=== PATIENT | female | born 1960 | race Caucasian/White ===

== ENCOUNTER → 2016-08-04 | Outpatient (CLI) | payer BC ==
--- NOTE | 2016-08-04 19:43 | HKNOTE ---
DATE OF SERVICE: 08/04/2016 The patient has degenerative osteoarthritis of her left knee. The cortisone injection given into he r knee at the last visit helped for almost 6 months. She requests a repeat cortisone injection. PHYSICAL EXAMINATION: The patient clinically has arthritis in the left knee (4+ crepitus). MANAGEMENT: Under sterile conditions, given injection of 2 mL of Kenalog and 6 mL of 2% lidocaine i nto the left knee. She will be seen again as necessary. Dictated By: NOLAN BERMUDEZ/MERCEDEZ Conf#: [id number] DID#: [id number]
== END | disposition home or self-care (01) ==
LOC: HKI 14:54
DX: M17.12 Unilateral primary osteoarthritis, left knee (principal)
CPT/HCPCS: 20610; G0463; J3301

== ENCOUNTER → 2016-11-24 | Outpatient (CLI) | payer BC ==
--- NOTE | 2016-11-25 05:31 | HKNOTE ---
DATE OF SERVICE: MAIN COMPLAINT: Pain in the left knee. The patient has had 2 cortisone injections in the left knee in the past performed by me for knee arthritis. The first one lasted for almost a year. The secon d one lasted for only a few months. She comes in "wondering if she can have another cortisone injec tion in the knee." On physical examination, the patient had all the clinical signs of a left knee arthritis and will re quire a second injection helped her for only 2 months. She does request that we give her another cortisone injection. She states "I don't want to have a s urgery at this time yet please." MANAGEMENT: Under sterile conditions gave injection of 2 mL of Kenalog and 6 mL of 2% lidocaine int o the left knee and she will be seen again as necessary for further evaluation and treatment. Note that we spent some time discussing knee replacement surgery. I showed her some videos on successful patients and case of knee arthritis . Dictated By: NOLAN BERMUDEZ/MERCEDEZ Conf#: [id number] DID#: [id number]
== END | disposition home or self-care (01) ==
LOC: HKI 15:02
DX: M25.562 Pain in left knee (principal)
CPT/HCPCS: 20610; G0463

== ENCOUNTER → 2017-04-29 | Outpatient (CLI) | payer BC ==
--- NOTE | 2017-04-30 12:10 | RADRPT ---
PROCEDURE: XR Knees. CLINICAL INDICATION: Bilateral knee pain. TECHNIQUE: Total of six views. Frontal, oblique, and lateral views of both knees. COMPARISON: No prior study is available for comparison. FINDINGS: There are mild degenerative changes of the right knee with osteophytes noted. There are severe degenerative changes of the left knee with medial joint compartment narrowing, suba rticular sclerosis, and deformity. There is no fracture or dislocation. There is no lytic or blastic lesion. There is no radiopaque foreign body. IMPRESSION: 1. Mild degenerative changes of the right knee. 2. Severe degenerative changes of the left knee. RPTAT: QQ .Davie Quiles MD, MD Date Time Electronically viewed and signed by .Davie Quiles MD, MD on 04/30/2017 12:10 .R/
--- NOTE | 2017-05-02 14:19 | HKNOTE ---
DATE OF SERVICE: 04/29/2017 CHIEF COMPLAINT: Left knee pain. HISTORY OF THE PRESENT ILLNESS: Nasra is a 56-year-old female who is here for evaluation of left knee pain that has been ongoing for a number of years. Over the past couple of months, the pain has inc reased to the point where it is interfering with routine activities. This is interfering with her w ork as well. 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 She is here to discuss possible knee replacement. She has se en Dr. Smith in the past and knee injections were tried with not much relief. PAST MEDICAL HISTORY: Significant for knee arthroscopy for torn meniscus. MEDICATIONS: Motrin. ALLERGIES: None. PHYSICAL EXAMINATION: This shows a pleasant female. She is awake, alert and oriented. Walks witho ut a limp. The left knee shows evidence of previous arthroscopy. There is tenderness over the medi al joint line, mild swelling is noted. Range of motion of the knee is 5 to 105 degrees with crepitu s. There is no instability and no neurovascular deficit. X-rays of the left knee were reviewed and show advanced osteoarthritis with complete loss of medial joint space. Osteophytes area noted in the medial and patellofemoral compartments. ASSESSMENT AND PLAN: This is a 56-year-old female with advanced osteoarthritis of her left knee. S he has failed conservative treatment. Risks and benefits of surgical treatment were discussed. Quinn gical techniques and implant materials were discussed as well. She would like to proceed with left total knee replacement in the near future and will be scheduled for the same. Dictated By: KARISSA CUMMINGS/MERCEDEZ Conf#: [id number] DID#: [id number]
== END | disposition home or self-care (01) ==
LOC: HKI 14:30
PROVIDERS: ATTEND Orthopaedic Surgery
DX: M17.12 Unilateral primary osteoarthritis, left knee (principal)
CPT/HCPCS: 73562; G0463

== ENCOUNTER → 2017-06-10 | Outpatient (CLI) | payer BC | END | disposition home or self-care (01) | LOC: HKI 13:31 | PROVIDERS: ATTEND Orthopaedic Surgery | DX: Z01.818 Encounter for other preprocedural examination (principal); M17.12 Unilateral primary osteoarthritis, left knee ==

== ENCOUNTER 2017-06-15 05:43 | Inpatient (IN) | payer BC, OTHER ==
--- NOTE | 2017-06-10 15:22 | PREOPHP ---
DATE OF ADMISSION: 06/15/2017 PREOPERATIVE INTERNAL MEDICINE CONSULTATION REASON FOR CONSULTATION: Consultation requested by Dr. Karissa Laguna for medical evaluation and paolo chacho of a 56-year-old woman about to undergo surgery. Thank you, Dr. Laguna, for allowing us to participate in care of this patient. HISTORY OF PRESENT ILLNESS: Nasra Mauricio, a 56-year-old woman, issues with her left knee, is current ly being admitted for correction of the above problem. In terms of her past medical and surgical history, her only prior surgery was an arthroscopic surger y, left knee for torn meniscus. She has not had any medical hospitalizations other than for deliver y of babies which was vaginal. She has had no other medical hospitalizations nor any other surgical procedures. She has not broken any bones. MEDICATIONS: The only medications she takes is ibuprofen, which she has discontinued. ALLERGIES: SHE IS NOT ALLERGIC TO ANY MEDICATIONS. SOCIAL HISTORY: The patient is , has 2 sons, one has juvenile rheumatoid arthritis. Other than that, they are healthy. She does not smoke. Alcohol socially. Does drink coffee, is employed and usually has no difficulty sleeping at night. FAMILY HISTORY: Father is at age 78, head trauma and dementia. Mother is 80 in good healt h. One brother is 59 and in good health. There is family history of hypertension. She knows of no diabetes, heart, cancer or stroke. REVIEW OF SYSTEMS: HEENT: Periodic migraine headaches. CARDIORESPIRATORY: Denies any chest pain or shortness of breath. GASTROINTESTINAL: No melena or hematemesis. GENITOURINARY: No urgency, frequency. GYNECOLOGIC: 2 years postmenopause. Up to date with her furnace puncher. MUSCULOSKELETAL: Positive for left knee pain. NEUROPSYCHIATRIC: Unremarkable. GENERAL HEALTH: As above. PHYSICAL EXAMINATION: VITAL SIGNS: The patient's blood pressure was 130/80, pulse was 80 and regular, respirations were 1 8, temperature 98.1. Height 62 inches, weight 218 pounds. GENERAL: The patient was noted to be a well-developed, well-nourished female, alert and cooperative , in no apparent acute distress, oriented to time, place, and person. HEAD, EARS, EYES, NOSE AND THROAT: Head was atraumatic. Eyes: Pupils were equal, reactive to ligh t and accommodation. Fundi were benign. Tympanic membranes were unremarkable. Nose was negative. Mouth was unremarkable. Fair oral hygiene was present. NECK: Supple without any rigidity. Trachea was midline. Thyroid was within normal limits. Neck v eins were flat. Carotid pulses were equal. No bruits were heard. BACK: Unremarkable. CHEST: Symmetrical. BREASTS AND AXILLARY: Did not reveal any masses. LUNGS: Clear to percussion and auscultation. HEART: PMI is fifth intercostal space at the midclavicular line. Regular sinus rhythm was noted. No significant murmurs, rubs, or gallops being elicited. ABDOMEN: Soft, good bowel sounds were noted. No significant organomegaly, masses, or tenderness. GENITALIA AND PELVIRECTAL: Per furnace puncher. EXTREMITIES: Did not reveal any clubbing, edema or cyanosis. Peripheral pulses were physiologic. SKIN: Moist and warm without any eruptions. No gross lymphadenopathy was noted. NEUROLOGIC: Grossly intact. IMPRESSION: 1. Degenerative joint disease, left knee. 2. Postmenopause. 3. Stable health. DISCUSSION, REVIEW OF LABORATORY AND OTHER DATA REVEALED THE FOLLOWING: The patient's chemistry nance el including electrolytes, glucose, BUN and creatinine and liver function tests were basically prema l. The patient's serum iron was minimally low at 42. CBC, sed rate, UA, PT and PTT were normal as well. The patient's EKG was normal as was her chest x-ray. DISCUSSION: Dr. Laguna, I see no contraindication in this patient undergoing current proposed surge ry under desired form of anesthesia. I feel she is a suitable candidate at this particular point in time. I will be more than happy to follow her along with you during her stay at [facility]. Thank you again, Dr. Laguna, for allowing us to participate in the care of this patient. Dictated By: ROBER TAVERAS MD SS/MERCEDEZ Conf#: [id number] DID#: [id number] CC: KARISSA LAGUNA MD;*EndCC*
[~2017-06-15] VITALS: Ht 160 cm; Wt 96.8 kg
[2017-06-15] VITALS (14 sets, daily range): BP systolic 115–140; BP diastolic 59–81; PULSE 76–88; RESP 10–18; Ht 160 cm; Wt 96.8 kg
[~2017-06-15 05:43] MED LIST: DEXAMETHASONE 4 MG/ML 1 ML INJ IV ONE
[2017-06-15] MEDS ORDERED: SOD CHLORIDE 0.9% IVPB SCH (06:00)
[2017-06-15] MEDS ORDERED: SOD CHLORIDE 0.9% IRR SCH ×2 (06:00)
[2017-06-15] MEDS ORDERED: CEFAZOLIN 2 GM/50 ML (PMX) 50 ML IVPB SCH (06:00)
[2017-06-15] MEDS ORDERED: LANSOPRAZOLE 30 MG CAP PO SCH (06:00)
[2017-06-15] MEDS ORDERED: TRANEXAMIC ACID IVPB SCH (06:00)
[2017-06-15] MEDS ORDERED: CELECOXIB 200 MG CAP PO SCH (06:00)
[2017-06-15] MEDS ORDERED: ONDANSETRON 4 MG INJ IV SCH (06:00)
[2017-06-15] MEDS ORDERED: ACETAMINOPHEN 1000MG/100ML IV 100 ML IVPB SCH (06:00)
[2017-06-15] MEDS ORDERED: TRANEXAMIC ACID IRR SCH ×2 (06:00)
[2017-06-15] MEDS ORDERED: DEXAMETHASONE 4 MG/ML 1 ML INJ IV SCH (06:00)
[2017-06-15] MEDS ORDERED: POLYMYXIN/BACITRACIN 1L IRRIG ONE (06:59)
[2017-06-15] MEDS ORDERED: BACITRACIN 50000 UNITS INJ ONE (06:59)
[2017-06-15] MEDS ORDERED: CEFAZOLIN 1 GM INJ ONE (07:00)
[2017-06-15] MEDS ORDERED: BUPIVACAINE 0.5%/EPI (SDV) 30 ML INJ ONE (07:01)
[2017-06-15] MEDS ORDERED: morphine SULFATE/PF (10 MG/10 ML) INJ ONE (07:01)
[2017-06-15] MEDS ORDERED: KETOROLAC 30 MG INJ ONE (07:02)
[2017-06-15] MEDS ORDERED: POLYMYXIN B 500000 UNIT INJ ONE (07:08)
--- NOTE | 2017-06-15 07:17 | HPN ---
Date/Time of Note Date/Time of Note DATE: 06/15/17 TIME: 07:17 Interval H&P Admission Note Pt. seen H&P reviewed: No system changes JING GALLARDO PA-C Jun 15, 2017 07:17
[2017-06-15] MEDS ORDERED: PROPOFOL 20 ML ONE (07:19)
[2017-06-15] MEDS ORDERED: FENTAnyl 50 MCG/ML VIAL ONE (07:19)
[2017-06-15] MEDS ORDERED: MIDAZOLAM 1 MG/ML 2 ML INJ ONE (07:19)
[2017-06-15] MEDS ORDERED: METOCLOPRAMIDE 10 MG INJ ONE (07:20)
[2017-06-15] MEDS ORDERED: DEXAMETHASONE 4 MG/ML 1 ML INJ ONE (07:20)
--- NOTE | 2017-06-15 07:24 | HPN ---
Date/Time of Note Date/Time of Note DATE: 06/15/17 TIME: 07:24 Interval H&P Admission Note Pt. seen H&P reviewed: No system changes KARISSA LAGUNA Jun 15, 2017 07:24
[2017-06-15] MEDS ORDERED: ROPIVACAINE 0.2% 60 ML, CLONIDINE 100 MCG, EPINEPHrine 0.3 MG, KETOROLAC 30 MG, SOD CHL... INJ SCH ×5 (07:30)
[2017-06-15] MEDS ORDERED: ROPIVACAINE 0.5 % 30 ML VIAL ONE (07:43)
[2017-06-15] MEDS ORDERED: MEPERIDINE 25 MG INJ IV PRN (09:00)
[2017-06-15] MEDS ORDERED: HYDROmorphONE (0.2 MG/ML) 10ML SYG IV PRN ×3 (09:00)
[2017-06-15] MEDS ORDERED: METOCLOPRAMIDE 10 MG INJ IV PRN (09:00)
[2017-06-15] MEDS ORDERED: DIPHENHYDRAMINE 50 MG INJ IV PRN (09:00)
[2017-06-15] MEDS ORDERED: ONDANSETRON 4 MG INJ IV PRN (09:00)
--- NOTE | 2017-06-15 09:21 | SIPON ---
Date/Time of Note Date/Time of Note DATE: 06/15/17 TIME: 09:20 Operative Report Preoperative Diagnosis left knee DJD Postoperative Diagnosis same Operation/Procedure Performed Left TKA Surgeon see signature line malt specifications control assistant Jing Second assist: JING GALLARDO PA-C Anesthesia: spinal Estimated blood loss: 150 - 200 ml's Transfusion Required none Specimen bone Grafts/Implants 5 femur, 4 tibia, 6 poly, 35 patella Complications none KARISSA LAGUNA Jun 15, 2017 09:21
--- NOTE | 2017-06-15 09:36 | OPR ---
Date/Time of Note Date/Time of Note DATE: 06/15/17 TIME: 09:31 Operative Report Procedure Date: Jun 15, 2017 Preoperative Diagnosis Left knee osteoarthritis Postoperative Diagnosis Same Operation/Procedure Performed Left total knee replacement Surgeon see signature line Oncology Physician Assistant Oswaldo Anesthesia Type: spinal Estimated Blood Loss: 150 - 200 ml's Transfusion none Specimen Bone Grafts/Implants depuy size 5 femur, size 4 tibia, 6 mm polyethylene, 35 mm patella Tubes/Drains None Complications none Pt Condition Post Procedure: stable Disposition: PACU Indications 56-year-old female with advanced osteoarthritis of her left knee Procedure Description The patient was placed supine on the operating room table. The left knee was prepped and draped in the usual manner. Examination of the left knee showed a flexion deformity of 10 of varus deformity of 10 and range of motion from 10- 95. Left knee was approached anteriorly. A mid vastus approach was made and the patella displaced laterally without everting it. Advanced osteoarthritis was encountered in the knee with complete loss of cartilage in the medial compartment with large osteophytes and loose bodies. Using intramedullary alignment, the left femoral cut was made in 5 of valgus. The femur was measured to be a size 5 from the [employer] knee system. Size 5 cutting block was placed in slight external rotation. Anterior posterior and chamfer cuts were made. The notch was cut in the distal femur to accommodate the posterior stabilized femoral component. PCL was sacrificed. Remnants of the menisci were removed. Osteophytes and loose bodies were removed. Tibia was cut using external alignment and the patella cut using a freehand technique. Trials were inserted including a size 5 femur size 4 tibia and 35 mm patella. 6 mm polyethylene resulted in a stable knee with range of motion from 0-105. There was good balance and tracking of the patella. X-rays were obtained to confirm alignment. Once satisfactory alignment was confirmed, final implants were cemented in place including a 5 narrow femur, 4 tibia and 35 patella. Excess cement was removed. 6 mm of polyethylene was inserted to complete the knee replacement. The knee was thoroughly irrigated and injected with Marcaine and Toradol. The knee was closed in layers using #1 Vicryl for arthrotomy and fascia, 2-0 Vicryl for subcutaneous tissue, 3-0 Monocryl for the skin. A compression bandage was applied and the patient transferred to the recovery room in stable condition KARISSA LAGUNA Jun 15, 2017 09:36
--- NOTE | 2017-06-15 09:41 | PDOCDIS ---
Discharge Instructions DIAGNOSIS Discharge Diagnosis Status post left total knee arthroplasty CONDITION Patient Condition: Good HOME CARE INSTRUCTIONS: Diet Instructions: Regular ACTIVITY: Activity Restrictions: Slowly Increase Activity Rest between Activity Avoid heavy lifting No Sexual Activity Do not Drive Do not operate Machinery Do not operate Power Tool Avoid Heavy Housework Keep Limb Elevated (May keep 2-3 pillows under the foot/ankle only. May apply cold therapy over surgical dressing.) Weight Bearing (Weightbearing as tolerated with use of front wheeled walker.) Bathing Restrictions: Shower (Keep area clean and dry. Mepilex dressing to remain on until seen at postoperative appointment in 10-14 days.) FOLLOW UP/APPOINTMENTS Follow-up Plan Follow-up at postoperative appointment provided to you at your preoperative visit. JING GALLARDO PA-C Jun 15, 2017 09:41
[2017-06-15] MEDS ORDERED: oxyCODONE 5 MG TAB PO PRN ×2 (10:00)
[2017-06-15] MEDS ORDERED: DIPHENHYDRAMINE 50 MG INJ IM PRN (10:00)
[2017-06-15] MEDS ORDERED: SENNA/DOCUSATE NA (8.6MG/50MG) TAB PO PRN (10:00)
[2017-06-15] MEDS ORDERED: BISACODYL 10 MG SUPP PR PRN (10:00)
[2017-06-15] MEDS ORDERED: ZOLPIDEM 5 MG TAB PO PRN (10:00)
[2017-06-15] MEDS ORDERED: DOCUSATE SODIUM 100 MG CAP PO ONE (10:00)
[2017-06-15] MEDS ORDERED: ASPIRIN (EC) 325 MG TAB PO ONE (10:00)
[2017-06-15] MEDS ORDERED: NALOXONE (0.4 MG/ML) INJ IV PRN (10:00)
[2017-06-15] MEDS ORDERED: MAGNESIUM HYDROXIDE 30ML CUP PO PRN (10:00)
[2017-06-15] MEDS ORDERED: KETOROLAC 15 MG INJ IV PRN (10:00)
[2017-06-15] MEDS ORDERED: NA PHOSPHATE/BIPHOS 133 ML ENEMA PR PRN (10:00)
[2017-06-15] MEDS ORDERED: BETHANECHOL 25 MG TAB PO PRN (10:00)
[2017-06-15] MEDS: CEFAZOLIN 1 GM/50 ML (PMX) 50 ML IVPB SCH ×2 (10:25→18:03)
[2017-06-15] MEDS: SOD CHLORIDE 0.9% 1,000 ML IV SCH ×2 (10:25→22:11)
[2017-06-15] MEDS: ONDANSETRON 4 MG INJ IV SCH ×3 (10:30→22:00)
--- NOTE | 2017-06-15 11:39 | RADRPT ---
PROCEDURE: Left knee radiograph. CLINICAL INDICATION: Left knee pain. Intraoperative. TECHNIQUE: Single frontal intraoperative image of the left knee. COMPARISON: 03/16/2016. 04/29/2017. FINDINGS: There are components of a total left knee arthroplasty. Alignment was determined in the operating r oom by the surgeon. IMPRESSION: 1. Satisfactory intraoperative imaging of the left knee. RPTAT: QQ .Davie Quiles MD, MD Date Time Electronically viewed and signed by .Davie Quiles MD, on 06/15/2017 11:39 .R/
--- NOTE | 2017-06-15 13:52 | CONS ---
Date/Time of Note Date/Time of Note DATE: 06/15/17 TIME: 13:47 Consult Date/Type/Reason Admit Date/Time Jun 15, 2017 at 05:43 Initial Consult Date 06/07/2017 Type of Consultation: internal medicine Reason for Consultation pre-operative medical evaluation and clearance Ordering Provider: KARISSA LAGUNA Subjective up with ntherpist post op doing well Objective Vital Signs Date Time Temp Pulse Resp B/P Pulse Ox O2 Delivery O2 Flow Rate FiO2 06/15/17 11:01 97.7 77 18 121/81 97 06/15/17 10:37 Nasal Cannula 2.0 Exam vss heent negative lungs clear heart regular rhythm Results/Medications Medications Current Medications Cefazolin Sodium/ Dextrose 50 ml @ 100 mls/hr PREOP IVPB ; Start 06/15/17 at 06:00; Stop 06/15/17 at 17:00 Acetaminophen (Ofirmev 1000mg/ 100ml Iv) 100 ml @ 400 mls/hr PRE-OP IVPB Last administered on 06/15/17 06:13; Admin Dose 400 MLS/HR; Start 06/15/17 at 06: 00; Stop 06/15/17 at 17:00 Celecoxib (Celebrex) 400 mg PRE-OP PO Last administered on 06/15/17 06:10; Admin Dose 400 MG; Start 06/15/17 at 06:00; Stop 06/15/17 at 16:00 Lansoprazole (Prevacid) 30 mg PRE-OP PO Last administered on 06/15/17 06:10; Admin Dose 30 MG; Start 06/15/17 at 06:00; Stop 06/15/17 at 16:00 Ondansetron HCl (Zofran Inj) 4 mg PRE-OP IV Last administered on 06/15/17 06: 10; Admin Dose 4 MG; Start 06/15/17 at 06:00; Stop 06/15/17 at 16:00 Dexamethasone 8 mg 8 mg PRE-OP IV Last administered on 06/15/17 06:12; Admin Dose 8 MG; Start 06/15/17 at 06:00; Stop 06/15/17 at 16:00 Tranexamic Acid/ Sodium Chloride 119 ml @ 220 mls/hr PRE-OP IVPB ; Start 06/15 at 06:00; Stop 06/15/17 at 16:00 Sodium Chloride 50 ml/Tranexamic Acid 1900 mg INTRA-OP IRR ; Start 06/15/17 at 06:00; Stop 06/15/17 at 16:00 Sodium Chloride (NS) 1,000 ml @ 80 mls/hr [id number] IV Last administered on 10:25; Admin Dose 80 MLS/HR; Start 06/15/17 at 09:41 Oxycodone HCl (Roxicodone) 20 mg Q3H PRN PO PAIN LEVEL 8-10; Start 06/15/17 at 10:00 Oxycodone HCl (Roxicodone) 10 mg Q3H PRN PO PAIN LEVEL 4-7; Start 06/15/17 at 10:00 Oxycodone HCl (Roxicodone) 5 mg Q3H PRN PO PAIN LEVEL 1-3; Start 06/15/17 at 10:00 Zolpidem Tartrate (Ambien) 5 mg HS PRN PO INSOMNIA; Start 06/15/17 at 10:00 Ondansetron HCl 4 mg 4 mg Q6H IV ; Start 06/15/17 at 10:00; Stop 06/16/17 at 04:01 Cefazolin Sodium (Ancef 1 Gm/50 ml (Pmx)) 50 ml @ 100 mls/hr Q8H IVPB Last administered on 06/15/17 10:25; Admin Dose 100 MLS/HR; Start 06/15/17 at 10: 00; Stop 06/16/17 at 02:29 Aspirin (Ecotrin) 325 mg DAILY PO ; Start 06/16/17 at 09:00 Celecoxib (Celebrex) 100 mg BID PO ; Start 06/16/17 at 09:00 Pantoprazole (Protonix Tab) 40 mg DAILY@06 PO ; Start 06/17/17 at 06:00 Docusate Sodium/ Ferrous Fumarate (Christopher-Sequels) 1 tab BID PO ; Start at 09:00 Docusate Sodium (Colace) 200 mg BID PO ; Start 06/16/17 at 09:00; Stop at 08:59 Simethicone (Mylicon) 80 mg TID PRN PO DISTENSION/GAS/BLOATING; Start at 10:00 Senna/Docusate Sodium (Senokot-S) 2 tab BID PRN PO CONSTIPATION; Start at 10:00 Magnesium Hydroxide (Milk Of Mag) 30 ml HS PRN PO CONSTIPATION; Start at 10:00 Bisacodyl (Dulcolax Supp) 10 mg DAILY PRN [place] CONSTIPATION; Start 06/15/17 at 10:00 Sodium Biphosphate/ Sodium Phosphate (Fleet Enema) 133 ml DAILY PRN NM CONSTIPATION; Start 06/15/17 at 10:00 Diphenhydramine HCl (Benadryl) 25 mg Q4H PRN IM ITCHING OR RASH; Start at 10:00 Ketorolac Tromethamine (Toradol) 15 mg Q6 PRN IV PAIN; Start 06/15/17 at 10:00 ; Stop 06/19/17 at 09:59 Naloxone HCl (Narcan) 0.2 mg Q2M PRN IV DECREASED REPIRATORY RATE; Start at 10:00 Assessment/Plan Chief Complaint/Hosp Course post-op tkr left doing well Problems: Additional Assessment/Plan plan per will follow with you thank you [facility] ROBER TAVERAS MD Jun 15, 2017 13:52
[2017-06-15] MEDS: oxyCODONE 5 MG TAB PO PRN (20:02)
[2017-06-16 00:20] VITALS: BP 107/55; RESP 20
[2017-06-16] MEDS: ONDANSETRON 4 MG INJ IV SCH ×2 (00:41→06:01)
[2017-06-16] MEDS: oxyCODONE 5 MG TAB PO PRN ×3 (03:05→12:39)
[2017-06-16] MEDS: CEFAZOLIN 1 GM/50 ML (PMX) 50 ML IVPB SCH (03:21)
[2017-06-16 06:12] LABS: BASOPHILS % 0.1 % (0.0-2.0); EOSINOPHILS % 0.1 % (0.0-7.0); HEMATOCRIT 30.2 % (37.0-47.0); LYMPHOCYTES # 1.7 10^3/ul (0.8-2.9); LYMPHOCYTES % 15.5 % (15.0-51.0); MEAN CORPUSCULAR HEMOGLOBIN 30.8 pg (29.0-33.0); MEAN CORPUSCULAR HGB CONC 33.1 g/dl (32.0-37.0); MEAN CORPUSCULAR VOLUME 92.9 fl (82.0-101.0); MEAN PLATELET VOLUME 10.9 fl (7.4-10.4); MONOCYTE # 0.8 10^3/ul (0.3-0.9); MONOCYTES % 7.6 % (0.0-11.0); NEUTROPHIL # 8.2 10^3/ul (1.6-7.5); NEUTROPHILS % 76.2 % (39.0-77.0); PLATELET COUNT 192 10^3/UL (140-415); RED BLOOD COUNT 3.25 10^6/ul (4.20-5.40); RED CELL DISTRIBUTION WIDTH 12.7 % (11.5-14.5); WHITE BLOOD COUNT 10.8 10^3/ul (4.8-10.8)
[2017-06-16 06:36] LABS: CALCIUM 8.6 mg/dl (8.4-10.2); CREATININE 0.71 mg/dl (0.44-1.00); POTASSIUM 3.8 mmol/L (3.5-5.1)
[2017-06-16 08:30] VITALS: BP 114/63; RESP 20
[2017-06-16] MEDS ORDERED: ASPIRIN (EC) 325 MG TAB PO SCH (09:00)
[2017-06-16] MEDS ORDERED: DOCUSATE SODIUM 100 MG CAP PO SCH (09:00)
[2017-06-16] MEDS ORDERED: FERROUS FUMARATE (SR) TAB PO SCH (09:00)
[2017-06-16] MEDS ORDERED: CELECOXIB 100 MG CAP PO SCH (09:00)
[2017-06-16] MEDS ORDERED: CELECOXIB 200 MG CAP PO SCH (09:00)
[2017-06-16] MEDS: SOD CHLORIDE 0.9% 1,000 ML IV SCH (10:17)
--- NOTE | 2017-06-16 10:28 | CONS ---
Date/Time of Note Date/Time of Note DATE: 06/16/17 TIME: 10:24 Consult Date/Type/Reason Admit Date/Time Jun 15, 2017 at 05:43 Initial Consult Date 06/07/2017 Type of Consultation: internal medicine Reason for Consultation internal medicine f/u Ordering Provider: KARISSA LAGUNA Subjective feeling well only complaint left knne pain post op Objective Vital Signs Date Time Temp Pulse Resp B/P Pulse Ox O2 Delivery O2 Flow Rate FiO2 06/16/17 08:30 97.8 81 20 114/63 98 06/15/17 10:37 Nasal Cannula 2.0 Intake and Output 06/15/17 06/15/17 06/16/17 15:00 23:00 07:00 Intake Total 950 ml 1750 ml 610 ml Output Total 200 ml Balance 750 ml 1750 ml 610 ml Exam vss heent negative lungs clear heart regular rhythm abdomen soft Results/Medications Result Diagram: 06/16/17 0506 06/16/17 0504 Results 24 hrs Laboratory Tests Test 06/16/17 05:04 06/16/17 05:06 Sodium Level 140 Potassium Level 3.8 Chloride Level 105 Carbon Dioxide Level 29 Anion Gap 10 Blood Urea Nitrogen 19 Creatinine 0.71 Glucose Level 110 Calcium Level 8.6 White Blood Count 10.8 Red Blood Count 3.25 L Hemoglobin 10.0 L Hematocrit 30.2 L Mean Corpuscular Volume 92.9 Mean Corpuscular Hemoglobin 30.8 Mean Corpuscular Hemoglobin Concent 33.1 Red Cell Distribution Width 12.7 Platelet Count 192 Mean Platelet Volume 10.9 H Neutrophils % 76.2 Lymphocytes % 15.5 Monocytes % 7.6 Eosinophils % 0.1 Basophils % 0.1 Nucleated Red Blood Cells % 0.0 Neutrophils # 8.2 H Lymphocytes # 1.7 Monocytes # 0.8 Eosinophils # 0.0 Basophils # 0.0 Nucleated Red Blood Cells # 0.0 Medications Current Medications Sodium Chloride (NS) 1,000 ml @ 80 mls/hr [id number] IV Last administered on t 22:11; Admin Dose 80 MLS/HR; Start 06/15/17 at 09:41 Oxycodone HCl (Roxicodone) 20 mg Q3H PRN PO PAIN LEVEL 8-10; Start 06/15/17 at 10:00 Oxycodone HCl (Roxicodone) 10 mg Q3H PRN PO PAIN LEVEL 4-7 Last administered on 06/16/17 08:36; Admin Dose 10 MG; Start 06/15/17 at 10:00 Oxycodone HCl (Roxicodone) 5 mg Q3H PRN PO PAIN LEVEL 1-3; Start 06/15/17 at 10:00 Zolpidem Tartrate (Ambien) 5 mg HS PRN PO INSOMNIA; Start 06/15/17 at 10:00 Aspirin (Ecotrin) 325 mg DAILY PO Last administered on 06/16/17 08:36; Admin Dose 325 MG; Start 06/16/17 at 09:00 Pantoprazole (Protonix Tab) 40 mg DAILY@06 PO ; Start 06/17/17 at 06:00 Docusate Sodium/ Ferrous Fumarate (Christopher-Sequels) 1 tab BID PO Last administered on 06/16/17 08:35; Admin Dose 1 TAB; Start 06/16/17 at 09:00 Docusate Sodium (Colace) 200 mg BID PO Last administered on 06/16/17 08:35; Admin Dose 200 MG; Start 06/16/17 at 09:00; Stop 06/19/17 at 08:59 Simethicone (Mylicon) 80 mg TID PRN PO DISTENSION/GAS/BLOATING; Start at 10:00 Senna/Docusate Sodium (Senokot-S) 2 tab BID PRN PO CONSTIPATION; Start at 10:00 Magnesium Hydroxide (Milk Of Mag) 30 ml HS PRN PO CONSTIPATION; Start at 10:00 Bisacodyl (Dulcolax Supp) 10 mg DAILY PRN [place] CONSTIPATION; Start 06/15/17 at 10:00 Sodium Biphosphate/ Sodium Phosphate (Fleet Enema) 133 ml DAILY PRN [place] CONSTIPATION; Start 06/15/17 at 10:00 Diphenhydramine HCl (Benadryl) 25 mg Q4H PRN IM ITCHING OR RASH; Start at 10:00 Ketorolac Tromethamine (Toradol) 15 mg Q6 PRN IV PAIN Last administered on 15:26; Admin Dose 15 MG; Start 06/15/17 at 10:00; Stop 06/19/17 at 09: 59 Naloxone HCl (Narcan) 0.2 mg Q2M PRN IV DECREASED REPIRATORY RATE; Start at 10:00 Celecoxib (Celebrex) 100 mg BID PO Last administered on 06/16/17t 08:48; Admin Dose 100 MG; Start 06/16/17 at 09:00 Assessment/Plan Chief Complaint/Hosp Course post-op tkr left doing well Problems: Additional Assessment/Plan patient doing well management per medically stable thank you ROBER Harmon MD Jun 16, 2017 10:28
--- NOTE | 2017-06-16 11:47 | PN ---
Date/Time of Note Date/Time of Note DATE: 06/16/17 TIME: 11:47 Assessment/Plan VTE Prophylaxis VTE Prophylaxis Intervention: ambulation, SCD's, other Lines/Catheters IV Catheter Type (from Nrsg): Saline Lock Subjective 24 Hr Interval Summary Free Text/Dictation Candida is doing very well after her knee replacement. She is independent with her activities. Incision is clean and dry. The patient would like to go home today in follow-up in 2 weeks. Home health care is arranged. Exam/Review of Systems Vital Signs Vitals Vital Signs Date Time Temp Pulse Resp B/P Pulse Ox O2 Delivery O2 Flow Rate FiO2 06/16/17 08:30 97.8 81 20 114/63 98 06/15/17 10:37 Nasal Cannula 2.0 Intake and Output 06/15/17 06/15/17 06/16/17 15:00 23:00 07:00 Intake Total 950 ml 1750 ml 610 ml Output Total 200 ml Balance 750 ml 1750 ml 610 ml Results Result Diagram: 06/16/17 0506 06/16/17 0504 Results 24 hrs Laboratory Tests Test 06/16/17 05:04 06/16/17 05:06 Sodium Level 140 Potassium Level 3.8 Chloride Level 105 Carbon Dioxide Level 29 Anion Gap 10 Blood Urea Nitrogen 19 Creatinine 0.71 Glucose Level 110 Calcium Level 8.6 White Blood Count 10.8 Red Blood Count 3.25 L Hemoglobin 10.0 L Hematocrit 30.2 L Mean Corpuscular Volume 92.9 Mean Corpuscular Hemoglobin 30.8 Mean Corpuscular Hemoglobin Concent 33.1 Red Cell Distribution Width 12.7 Platelet Count 192 Mean Platelet Volume 10.9 H Neutrophils % 76.2 Lymphocytes % 15.5 Monocytes % 7.6 Eosinophils % 0.1 Basophils % 0.1 Nucleated Red Blood Cells % 0.0 Neutrophils # 8.2 H Lymphocytes # 1.7 Monocytes # 0.8 Eosinophils # 0.0 Basophils # 0.0 Nucleated Red Blood Cells # 0.0 Medications Medications Current Medications Sodium Chloride (NS) 1,000 ml @ 80 mls/hr [id number] IV Last administered on t 22:11; Admin Dose 80 MLS/HR; Start 06/15/17 at 09:41 Oxycodone HCl (Roxicodone) 20 mg Q3H PRN PO PAIN LEVEL 8-10; Start 06/15/17 at 10:00 Oxycodone HCl (Roxicodone) 10 mg Q3H PRN PO PAIN LEVEL 4-7 Last administered on 06/16/17 08:36; Admin Dose 10 MG; Start 06/15/17 at 10:00 Oxycodone HCl (Roxicodone) 5 mg Q3H PRN PO PAIN LEVEL 1-3; Start 06/15/17 at 10:00 Zolpidem Tartrate (Ambien) 5 mg HS PRN PO INSOMNIA; Start 06/15/17 at 10:00 Aspirin (Ecotrin) 325 mg DAILY PO Last administered on 06/16/17 08:36; Admin Dose 325 MG; Start 06/16/17 at 09:00 Pantoprazole (Protonix Tab) 40 mg DAILY@06 PO ; Start 06/17/17 at 06:00 Docusate Sodium/ Ferrous Fumarate (Christopher-Sequels) 1 tab BID PO Last administered on 06/16/17 08:35; Admin Dose 1 TAB; Start 06/16/17 at 09:00 Docusate Sodium (Colace) 200 mg BID PO Last administered on 06/16/17 08:35; Admin Dose 200 MG; Start 06/16/17 at 09:00; Stop 06/19/17 at 08:59 Simethicone (Mylicon) 80 mg TID PRN PO DISTENSION/GAS/BLOATING; Start at 10:00 Senna/Docusate Sodium (Senokot-S) 2 tab BID PRN PO CONSTIPATION; Start at 10:00 Magnesium Hydroxide (Milk Of Mag) 30 ml HS PRN PO CONSTIPATION; Start at 10:00 Bisacodyl (Dulcolax Supp) 10 mg DAILY PRN MI CONSTIPATION; Start 06/15/17 at 10:00 Sodium Biphosphate/ Sodium Phosphate (Fleet Enema) 133 ml DAILY PRN MI CONSTIPATION; Start 06/15/17 at 10:00 Diphenhydramine HCl (Benadryl) 25 mg Q4H PRN IM ITCHING OR RASH; Start at 10:00 Ketorolac Tromethamine (Toradol) 15 mg Q6 PRN IV PAIN Last administered on 15:26; Admin Dose 15 MG; Start 06/15/17 at 10:00; Stop 06/19/17 at 09: 59 Naloxone HCl (Narcan) 0.2 mg Q2M PRN IV DECREASED REPIRATORY RATE; Start at 10:00 Celecoxib (Celebrex) 100 mg BID PO Last administered on 06/16/17t 08:48; Admin Dose 100 MG; Start 06/16/17 at 09:00 KARISSA LAGUNA Jun 16, 2017 11:47
[2017-06-17] MEDS ORDERED: PANTOPRAZOLE (EC) 40 MG TAB PO SCH (06:00)
--- NOTE | 2017-06-17 08:17 | DS ---
Date/Time of Note Date/Time of Note DATE: 06/17/17 TIME: 08:15 Discharge Summary Admission/Discharge Info Admit Date/Time Jun 15, 2017 at 05:43 Discharge Date/Time Jun 16, 2017 at 15:15 Discharge Diagnosis Status post left total knee arthroplasty Patient Condition: Good Hospital Course On the day of admission, the patient underwent left total knee arthroplasty Intraoperative complications: None Postoperative complications: None The patient was given prophylactic antibiotics and anticoagulants. On the day of surgery and first postoperative day patient was started on gait training and was taught usual restrictions following knee replacement On postoperative day 1 dressing was clean dry and intact. No complications were observed. On the day of discharge, the wound was clean and healing well; there was no sign of infection. Wound care instructions were discussed with the patient. Discharge Temperature: 97.8 Discharge White Blood Cell Count: 10.8 Discharge Hemoglobin: 10 The patient was discharged home with home health. Arrangements were made for visiting nurses and home health/physical therapy. The patient will be seen in office at scheduled postoperative evaluation date given on their preoperative exam. Should patient complain of any problems prior to scheduled postoperative evaluation date, they may call into outpatient clinic to determine if they need to be scheduled at sooner appointment to be seen immediately if needed. Discharge medications: As per medication reconciliation form Diet: Same as preadmission diet. This is Jing Coon PA-C dictating discharge summary for Dr. Holliday. Home Meds No Active Prescriptions or Reported Meds Follow-up Plan Follow-up at postoperative appointment provided to you at your preoperative visit. Primary Care Provider Not On Staff Doctor JING GALLARDO PA-C Jun 17, 2017 08:17
== END 2017-06-16 15:15 | disposition home health service (06) | DRG 470 ==
LOC: REC 05:43 → MS1 10:53
PROVIDERS: ADMIT Orthopaedic Surgery; ATTEND Orthopaedic Surgery
PROC: 0SRD0J9 Replacement of Left Knee Joint with Synthetic Substitute, Cemented, Open Approach (ICD-10-PCS; principal; 2017-06-15 07:30)
DX: M17.12 Unilateral primary osteoarthritis, left knee (principal); E66.01 Morbid (severe) obesity due to excess calories; Z68.37 Body mass index [BMI] 37.0-37.9, adult; Z78.0 Asymptomatic menopausal state
CPT/HCPCS: 73560; 80048; 85025; 86850; 86900; 86901; 97110; 97116; 97163; 97530; C1713; C1776; J0131; J0171; J0690; J0735; J1100; J1170; J1885; J2250; J2274; J2405; J2765; J2795; J3010; J7030

== ENCOUNTER → 2017-07-01 | Outpatient (CLI) | payer BC ==
--- NOTE | 2017-07-01 14:50 | RADRPT ---
PROCEDURE: Left knee x-ray CLINICAL INDICATION: Knee pain TECHNIQUE: Weight bearing AP and lateral views of the left knee were obtained. COMPARISON: CR KNEE 03/16/2016 FINDINGS: There is normal mineralization. No acute fracture or dislocation is seen. The patient is status post left knee replacement with appropriate position of the prosthesis. There is a small joint effusion. There is no significant soft tissue swelling. RPTAT: AA IMPRESSION: Status post left knee replacement with appropriate position of the prosthesis. Small joint effusion. .Neftaly Newsome MD, MD Date Time Electronically viewed and signed by .Neftaly Newsome MD, on 07/01/2017 14:49 .S/
--- NOTE | 2017-07-01 15:41 | PN ---
Date/Time of Note Date/Time of Note DATE: 07/01/17 TIME: 15:35 Outpatient Progress Note Chief Complaint Two-week postop left total knee replaced HPI 56-year-old female presents today for 2 week postoperative appointment status post left total knee arthroplasty performed on 06/15/2017. Patient states that she has been doing well status post surgery. Pain is well controlled. Pain can typically be mild and at times moderate after activity. Denies any falls or injury. Denies any chest pain/tightness, shortness of breath. Denies any calf pain. She is no longer using assistive ambulatory device as she is ambulating independently. Patient continues to improve status post surgery. Review of Systems Const: No Fever, no chills, no Fatigue, normal appetite, no diaphoresis. Resp: No SOB, no wheezing, no chest pain. CV: No chest pain, no palpitaions, no GORDON. Physical Exam Blood pressure is 125/59, temperature is 97.9, pulse is 79, respiratory rate is 12, height is 5 foot 3 inches, weight is 210 pounds General Appearance: well-developed, well-nourished, in no acute distress. Left knee: Surgical wound is clean dry and intact. Healing well. No signs of infection. No tenderness to palpation on exam today. Gait is normal and nonantalgic. While lying supine she is able to flex the knee up to 90. About 10 lag from full extension. While in seated position she is able to flex up to 95 with 10 lag remaining on extension. With passive range of motion full extension is achieved in flexion up to 100 is achieved. Discomfort with flexion at 100. 5/5 strength on resistance. Numb sensation along the lateral compartment of the operative knee. Negative Homans sign. Imaging: X-ray of the Right knee performed on 07/01/2017 showing all components appearing well aligned, attached and integrated to the bone. No signs of any lucency between metal and bone. Allergies Coded Allergies: No Known Allergy (Unverified , 06/26/15) Assessment/Plan Problems: (1) Status post total left knee replacement * Prescription for post operative outpatient physical therapy provided today with focus on range of motion, strengthening as well as gait training. * Pain medication as needed. * Patient may discontinue aspirin at this time as she is up and moving without issue. * Patient will follow up in 6 weeks status post surgery date for repeat evaluation. * Three-month handicap placard provided today. Dr. Holliday was present for examination today. Medications Home Meds No Active Prescriptions or Reported Meds JING GLALARDO PA-C Jul 01, 2017 15:41
--- NOTE | 2017-07-02 06:44 | HKNOTE ---
DATE OF SERVICE: 07/01/2017 CHIEF COMPLAINT: Left knee replacement. HISTORY OF PRESENT ILLNESS: Nasra is here for 2-week followup on her left total knee replacement. S he is progressing well and is pleased with her outcome. She reports that pain has decreased and she is able to ambulate with a cane. She is continuing her physical therapy. There is no history of f ever or chills. PHYSICAL EXAMINATION: GENERAL: Shows a pleasant female. Left knee incision is healing well. MUSCULOSKELETAL: Range of motion 5 to 90 degrees. There is no neurovascular deficit. IMAGING: X-rays of the left knee show total knee replacement in good position with no evidence of l oosening. ASSESSMENT AND PLAN: The patient is progressing well after left knee replacement. She is advised t o continue activities as tolerated. She will continue physical therapy. Parking permit was renewed . The patient will follow up in 4 to 6 weeks. Dictated By: KARISSA CUMMINGS/MERCEDEZ Conf#: [id number] DID#: [id number]
== END | disposition home or self-care (01) ==
LOC: HKI 13:37
PROVIDERS: ATTEND Orthopaedic Surgery
DX: Z09 Encounter for follow-up examination after completed treatment for conditions other than malignant neoplasm (principal); Z96.652 Presence of left artificial knee joint

== ENCOUNTER → 2017-08-12 | Outpatient (CLI) | END | disposition home or self-care (01) ==

== ENCOUNTER → 2018-11-08 | Outpatient (CLI) | payer BC ==
--- NOTE | 2018-11-08 17:17 | CONS ---
Assessment/Plan Assessment/Plan Hospital Course (Demo Recall) 57-year-old female with 1 day history of posterior right knee pain. Her knee exam is only significant for tenderness over the distal hamstrings specifically the biceps femoris. X-rays do not demonstrate any degenerative changes. At this time I would like to start on an NSAID regiment and physical therapy. Plan: Meloxicam 15 mg daily Physical therapy Follow up as needed Consultation Date/Type/Reason Admit Date/Time Date of Consultation: Nov 08, 2018 Reason for Consultation Right knee pain Date/Time of Note DATE: 11/08/18 TIME: 17:09 Hx of Present Illness This is a 57-year-old female with a chief complaint of right knee pain. The pain began approximately 1 day ago. The patients pain is in the posterior aspect of the right knee. Pain is not radiating to the lower leg. The pain is rated as a 10/10. The pain is better today than yesterday as she was unable to walk yesterday. Patient denies complaints of numbness or tingling. The pain is exacerbated by climbing stairs and ambulation. Pain is not relieved by NSAID's. Patient has been taking ibuprofen on a p.r.n. basis as well as using ice. Patient denies swelling. Denies any specific injury. Was gardening the day before. Duration: One day Injury: No Walking tolerance: 0 block Limp: Yes Support: No Swelling: No Crepitation: No Instability: No Stairs: Unable to use stairs Physical Therapy: No Injections: No NSAIDs: Ibuprofen p.o. Prior surgery: No Back pain: No Hip pain: No Risk of AVN : No Patient denies fever, chills, shortness of breath, chest pain, nausea/vomiting, constipation, diarrhea, numbness, and tingling. Past Medical History Denies past medical history Home Meds No Active Prescriptions or Reported Meds Allergies: Coded Allergies: No Known Allergy (Unverified , 06/26/15) Past Surgical History Left total knee arthroplasty 06/15/2017 - Dr. Holliday Family History Significant Family History: no pertinent family hx Social History Alcohol Use: occasionally Smoking Status: Never smoker Drug Use: none Exam/Review of Systems Exam Vitals Weight: 215 pound Height: 5 feet 2 inches Temperature: 90.9 Heart Rate: 173 Blood Pressure: 150/71 Respiratory Rate: 12 Exam General: Alert, oriented x3. No Acute Distress. Heart: Regular rate and rhythm. Lungs: No respiratory distress. No accessory muscle use. Musculoskeletal: Right Knee This is a well developed female who is alert, oriented times three and in no apparent distress. Skin is intact over the right knee as well as the lower extremity with no abrasions, lacerations, or ulcerations. Observation of the patient's gait reveals an antalgic gait with No thrust. Frontal plane alignment is neutral. There is pain on palpation of distal biceps femorris. Joint line was nontender to palpation. The patient demonstrates grinding anteriorly with ROM. Range of motion: 0 extension to approximately 120 degrees of flexion. Collateral ligament testing reveals no instability with varus or valgus stress at 0 and 30 degrees of flexion. Negative Phil's and negative posterior drawer. Neurovascularly intact with 5/5 EHL/tibialis an terior/gastroc. Sensation intact to light touch in a sural, saphenous, deep peroneal, superficial peroneal, medial and lateral plantar nerve distribution. Palpable, symmetric dorsalis pedis and posterior tibial pulses in both lower extremities. Hip examination normal. Imaging Imaging The patient received a standard set of films today that were personally reviewed. Imaging included a standing bilateral knee AP, PA flexion, merchant views and a dedicated lateral of the affected knee: There is neutral alignment of the knee. There is no no loss of joint space in any compartment(s). There is no osteophyte formation. There is no subchondral sclerosis. There are no subchondral cysts. No fracture. SERGEY IZQUIERDO MD Nov 08, 2018 17:17
--- NOTE | 2018-11-10 06:22 | RADRPT ---
PROCEDURE: Bilateral knee x-ray CLINICAL INDICATION: PAIN TECHNIQUE: Weightbearing AP, lateral, oblique and sunrise views of the bilateral knees were obtaine d. COMPARISON: KNEE 08/12/2017; KNEE 07/01/2017; KNEE 04/29/2017; [facility] KNEE 03/16/2016; CR KNEE FINDINGS: Right knee: There is normal mineralization. No acute fracture or dislocation is seen. There is no joint effusion. There are mild degenerative changes at the patellofemoral joint. There is no significant soft tissue swelling. Left knee: Left total knee arthroplasty is again noted with appropriate position and alignment of the femoral an d tibial components. There is normal mineralization. No acute fracture or dislocation is seen. There is no significant soft tissue swelling. IMPRESSION: Status post left total knee arthroplasty. No evidence of complication. 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 [facility] Physician Nicole Date Time Electronically viewed and signed by Physician Nicole on 11/10/2018 06:21 OLIVE/
== END | disposition home or self-care (01) ==
LOC: HKI 14:43
PROVIDERS: ATTEND Orthopaedic Surgery Adult Reconstructive Orthopaedic Surgery
DX: M25.562 Pain in left knee (principal); Z96.652 Presence of left artificial knee joint
CPT/HCPCS: 73564; G0463

== ENCOUNTER → 2018-11-20 | Outpatient (CLI) | payer BC ==
--- NOTE | 2018-11-20 16:40 | CONS ---
Consult Date/Type/Reason Admit Date/Time Initial Consult Date Date/Time of Note DATE: 11/20/18 TIME: 16:35 Subjective 58-year-old female follows up today in clinic for right knee pain. She was seen just over week ago for right knee pain which was mostly secondary to distal hamstring strain. She start with conservative treatment that time include meloxicam. She has not started physical therapy. Meloxicam has significant helped in the posterior knee pain has gone away. However 5 days ago without injury or known cause that she started having significant anterior and medial knee pain. Denies any true mechanical symptoms although she states it feels like there is a flap in front of her knee. She is walking with more of a limp secondary to this. She also stopped taking meloxicam couple days ago. Denies numbness and tingling. States the pain is 8/10. Weightbearing worsens the pain. Objective Vitals Weight: 215 pound Height: 5 foot 2 inches Temperature: 90.1 Heart Rate: 97 Blood Pressure: 127/66 Respiratory Rate: 12 Exam General: Alert, oriented x3. No Acute Distress. Heart: Regular rate and rhythm. Lungs: No respiratory distress. No accessory muscle use. Musculoskeletal: Right Knee This is a well developed obese female who is alert, oriented times three and in no apparent distress. Skin is intact over the right knee as well as the lower extremity with no abrasions, lacerations, or ulcerations. Observation of the patient's gait reveals an antalgic gait with No thrust. Frontal plane alignment is neutral. There is pain on palpation of medial joint line as well as anterior over the patella tendon. The patient demonstrates grinding anteriorly with ROM. Range of motion: 0 extension to approximately 110 degrees of flexion. Collateral ligament testing reveals no instability with varus or valgus stress at 0 and 30 degrees of flexion. There is Phil's and negative posterior drawer. Neurovascularly intact with 5/5 EHL/tibialis anterior/gastroc. Sensation intact to light touch in a sural, saphenous, deep peroneal, superficial peroneal, medial and lateral plantar nerve distribution. Palpable, symmetric dorsalis pedis and posterior tibial pulses in both lower extremities. Hip examination normal. Results/Medications Home Meds No Active Prescriptions or Reported Meds Assessment/Plan Hospital Course (Demo Recall) 58-year-old female with new onset medial sided right knee pain. At this time it is possible she has a medial meniscus tear. She also has symptoms consistent with patellofemoral syndrome as well as patella tendinitis. Her distal hamstrin g strain does seem to be improved however she continues to be mildly tender on examination. At this time I would recommend continue conservative treatment with meloxicam, steroid injection, and physical therapy. If her symptoms do not improve or they worsen over the next 6 weeks an MRI will likely be ordered. Plan: Right knee steroid injection Physical therapy Continue meloxicam Follow-up 12 weeks Assessment/Plan (Daily) Right knee steroid injection procedure: Risks and benefits of steroid injection reviewed with patient. The risks include infection, failure, pain, swelling, nerve/tendon/ligament damage. The patient verbalized understanding and verbal consent was obtained prior to procedure. The right knee was prepped in a sterile fashion with alcohol and betadine the site of injection was confirmed. Lateral approach was used. The skin and capsule was anesthetized with 3mL 1% lidocaine. The right knee was injected with 2mL 1% lidocaine, 2mL 0.25% bupivacaine, 40mg Depo-Medrol. Injection flowed freely. Good hemostasis was achieved and no complications noted. The patient tolerated the procedure well. Limit activity and ice for 24-48 hours SERGEY IZQUIERDO MD Nov 20, 2018 16:40
== END | disposition home or self-care (01) ==
LOC: HKI 14:55
PROVIDERS: ATTEND Orthopaedic Surgery Adult Reconstructive Orthopaedic Surgery
DX: M25.561 Pain in right knee (principal); E66.9 Obesity, unspecified
CPT/HCPCS: 20610; G0463